=== PATIENT | female | born 1995 ===

== ENCOUNTER 2023-02-19 13:16 | Inpatient (IN) | payer OTHER ==
[~2023-02-19] VITALS: Ht 149.9 cm; Wt 68.0 kg
[2023-03-04] MEDS ORDERED: SYNTHROID175 MCG PO (12:15)
[2023-03-06] MEDS ORDERED: COMPLETE NATAL1 EACH PO (10:06)
== END 2023-03-08 13:08 | disposition home or self-care (01) | DRG 788 ==
LOC: O/R 03-06 08:56 → OB/GYN 03-06 15:30
PROVIDERS: ADMIT Obstetrics & Gynecology Maternal & Fetal Medicine; ATTEND Obstetrics & Gynecology Maternal & Fetal Medicine
PROC: 4A1HXCZ Monitoring of Products of Conception, Cardiac Rate, External Approach (ICD-10-PCS; 2023-03-06)
PROC: 10D00Z1 Extraction of Products of Conception, Low, Open Approach (ICD-10-PCS; principal; 2023-03-06 19:00)
DX: O82 Encounter for cesarean delivery without indication (principal); O99.824 Streptococcus B carrier state complicating childbirth; Z3A.39 39 weeks gestation of pregnancy; Z37.0 Single live birth; Z20.822 Contact with and (suspected) exposure to COVID-19

== ENCOUNTER 2023-02-27 20:36 | Outpatient (CLI) | payer OTHER | END 2023-02-27 21:01 | disposition home or self-care (01) | LOC: NST 20:36 | PROVIDERS: ATTEND Obstetrics & Gynecology | DX: Z34.83 Encounter for supervision of other normal pregnancy, third trimester (principal) ==